=== PATIENT | female | born 1995 | race Caucasian/White ===

== ENCOUNTER 2022-02-03 05:53 | Inpatient (IN) ==
[2022-02-03] MEDS ORDERED: miSOPROStoL 25 MCG TABLET VG PRN (06:11)
[2022-02-03] MEDS ORDERED: Metoclopramide 10 MG/2 ML VIAL IVP PRN (06:16)
[2022-02-03] MEDS ORDERED: Famotidine 20 MG/2 ML VIAL IVP PRN (06:16)
[2022-02-03] MEDS ORDERED: Lidocaine 1% 20 ML MDV INFILT PRN (06:16)
[2022-02-03] MEDS ORDERED: Naloxone 0.4 MG/ML INJ IVP PRN (06:16)
[2022-02-03] MEDS ORDERED: EPHEDrine 50 MG/ML VIAL IVP PRN (06:57)
[2022-02-03] MEDS ORDERED: Epidural Premix (fent/bupiv) 110 ML EP SCH (07:00)
[2022-02-03 07:07] LABS: Basophils % 0.3 %; Eosinophils # 0.1 K/mcL (0.0-0.6); Eosinophils % 0.7 %; Hemoglobin 11.1 g/dL (11.5-15.4); Immature Granulocytes % 0.6 % (0-4); Lymphocytes # 2.9 K/mcL (0.6-4.6); Lymphocytes % 19.1 %; Mean Corpuscular HGB Conc 32.6 g/dL (31.6-35.5); Mean Corpuscular Hemoglobin 28.5 pg (28.0-33.3); Mean Corpuscular Volume 87.4 fL (83.0-100.0); Mean Platelet Volume 11.4 fL (9.4-12.4); Monocytes # 0.8 K/mcL (0.0-1.3); Monocytes % 5.2 %; Neutrophils # 11.2 K/mcL (1.6-8.9); Platelet Count 385 K/mcL (140-400); Red Blood Count 3.89 M/mcL (3.82-4.97); Segmented Neutrophils % 74.1 %; White Blood Count 15.1 K/mcL (4.3-11.1)
[2022-02-03] MEDS ORDERED: Ropivacaine/PF 0.2% 20 ML VIAL EP ONE (07:55)
[2022-02-03] MEDS ORDERED: *HR* FentaNYL (PF) 100 MCG/2 ML VIAL EP ONE (07:55)
[2022-02-03 10:48] LABS: Amphetamine Screen,Urine Negative ng/mL (Cutoff=1000); Barbiturate Screen,Urine Negative ng/mL (Cutoff=200); Benzodiazepines Screen,Urine Negative ng/mL (Cutoff=200); Cannabinoid Screen,Urine Negative ng/mL (Cutoff = 50); Cocaine Screen,Urine Negative ng/mL (Cutoff= 300); Opiate Screen,Urine Negative ng/mL (Cutoff=300); Phencyclidine Screen,Urine Negative ng/mL (Cutoff=25)
[2022-02-03] MEDS: Ringers Solution, Lactated 1,000 ML IVC SCH ×2 (12:45→15:21)
[2022-02-03] MEDS ORDERED: Ropivacaine/PF 0.2% 20 ML VIAL ONE (13:06)
[2022-02-03] MEDS ORDERED: *HR* FentaNYL (PF) 100 MCG/2 ML VIAL ONE (13:06)
[2022-02-03] MEDS ORDERED: Oxytocin 30 UNIT/503 ML BAG IVC SCH ×2 (15:00→23:35)
[2022-02-03] MEDS ORDERED: Ondansetron ODT 4 MG TAB.RAPDIS SL PRN (23:35)
[2022-02-03] MEDS ORDERED: Benzocaine/Menthol 56 GM AEROSOL SPRAY TP PRN (23:35)
[2022-02-03] MEDS ORDERED: Lanolin 7 G OINT...G. TP PRN (23:35)
[2022-02-03] MEDS ORDERED: *HR* OxyCODONE Immed Rel 5 MG TABLET PO PRN (23:35)
[2022-02-04] MEDS: Acetaminophen 325 MG TABLET PO SCH ×4 (00:40→19:46)
[2022-02-04] MEDS: Ibuprofen 600 MG TABLET PO SCH ×4 (00:40→19:47)
[2022-02-04 06:22] LABS: Basophils % 0.2 %; Eosinophils # 0.1 K/mcL (0.0-0.6); Eosinophils % 0.6 %; Hematocrit 29.9 % (35.3-44.9); Immature Granulocytes % 0.5 % (0-4); Lymphocytes # 2.8 K/mcL (0.6-4.6); Lymphocytes % 14.9 %; Mean Corpuscular HGB Conc 31.8 g/dL (31.6-35.5); Mean Corpuscular Hemoglobin 28.3 pg (28.0-33.3); Mean Platelet Volume 11.1 fL (9.4-12.4); Monocytes # 1.1 K/mcL (0.0-1.3); Monocytes % 5.8 %; Neutrophils # 14.5 K/mcL (1.6-8.9); Platelet Count 318 K/mcL (140-400); Red Blood Count 3.36 M/mcL (3.82-4.97); Red Cell Distribution Width 13.1 % (11.5-14.5); White Blood Count 18.6 K/mcL (4.3-11.1)
[2022-02-04 06:25] LABS: Hemoglobin 9.5 g/dL (11.5-15.4)
[2022-02-04] MEDS ORDERED: Prenatal Vit/FA 1 EACH TABLET PO SCH (09:00)
[2022-02-04 15:20] VITALS: O2SAT 98
[2022-02-04 19:49] VITALS: BP 115/62; PULSE 78; TEMP 98.2
== END 2022-02-04 21:35 | disposition home or self-care (01) | DRG 560 ==
LOC: 1NENULAB 05:53 → 1NENUOBS 02-04 00:03
PROVIDERS: ADMIT Obstetrics & Gynecology; ATTEND Obstetrics & Gynecology